=== PATIENT | female | born 1975 | race Caucasian/White ===

== ENCOUNTER 2023-01-08 09:55 | Inpatient (IN) | payer OTHER, SELFPAY ==
[2023-01-08] VITALS (51 sets, daily range): BP systolic 98–151; BP diastolic 58–90; PULSE 75–131; RESP 14–16; TEMP 36–37.2; O2SAT 96–99; BMI 30.9
[2023-01-08] MEDS: Lactated Ringers 1,000 ML 999 ML IV (09:30)
[2023-01-08] MEDS: Methylergonovine 0.2 MG/ML Ampul IM (09:35)
[2023-01-08] MEDS: Carboprost Tromethamine 250 MCG/ML Ampul IM (09:46)
[2023-01-08] MEDS: Oxytocin 15 Units/NS 250ml 15 UNITS/250 ML IV.SOLN 83 UNITS IV (09:52)
[2023-01-08 09:59] LABS: Absolute Lymphocyte Count 2.05 X10^3/uL (0.83-4.51); Absolute Neutrophil Count 12.9 X10^3/uL (2.0-7.7); Basophil# 0.03 X10^3/uL; Basophil% 0.2 % (0-1); Eosinophil# 0.01 X10^3/uL; Eosinophils% 0.1 % (0-5); Hematocrit 30.9 % (37-47); Hemoglobin 10.3 g/dL (12.0-15.0); Lymphocyte # 2.05 X10^3/ul (0.83-4.51); Lymphocyte % 12.7 % (19-41); Mean Corp Hgb Conc 33.3 g/dL (32-36); Mean Corpuscular Hgb 31.5 pg (27.0-32.0); Mean Corpuscular Volume 94.5 fL (81-99); Mean Platelet Vol. 10.6 fl (6.2-12.0); Monocyte% 6.2 % (0-10); NRBC Flagged by Analyzer 0 % (0-5); Neutrophil # 12.89 X10^3/uL (2.7-7.7); Neutrophil % 80.2 % (47-70); Platelet Count 202 K/mm3 (150-450); RBC Distribution Width CV 13.1 % (11.6-14.6); RBC Distribution Width SD 44.6 fl (35.1-43.9); Red Blood Count 3.27 M/mm3 (4.2-5.4); White Blood Count 16.1 K/mm3 (4.4-11.0)
--- NOTE | 2023-01-08 10:10 | PCM.HP.BLA ---
History and Physical Date of Admission: 01/08/23 HPI: 47-year-old day 0 status post spontaneous vaginal delivery at home admitted for hemorrhage. manager unit reports that patient delivered around 5 AM, labor had started around 2:30 AM. Bleeding initially was within normal limits, however then became heavier. She estimates blood loss at home to be approximately 1200 cc. Unable to control bleeding with fundal massage and bimanual massage. Therefore she brought the patient here to the hospital. Upon arrival patient was feeling tired, without dizziness or lightheadedness. Denied chest pain or shortness of breath, nausea or vomiting, diarrhea constipation, fevers or chills. Reports minimal cramping, declined pain management at this time. complicated by: Advanced maternal age, grand multiparity, precipitous delivery. No history of hemorrhage. 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 All vaginal deliveries. Her last delivery in 2021 was a breech home delivery. Otherwise no complications in her pregnancies or period. Medical history: Denies Surgical history: 1. Appendectomy Allergies: No known drug allergies Medications: Denies Social history: Denies tobacco, alcohol, drug use Family history: Noncontributory Review of system: Negative otherwise stated above Physical exam: Blood pressure 105/75, heart rate 104, pulse ox 98% on room air General: Upon admission patient was pale, in no acute distress. Cardiorespiratory: No increased effort Abdomen: Uterus deviated to the patient's left. Large amount of clot extruded from the uterus with fundal massage. Clot measuring 1150 g in hospital. : No perineal lacerations on exam. Cervix dilated about 6 cm, no clot noted in the lower uterine segment or vagina. Extremities: Minimal edema, spider veins on bilateral legs. Musculoskeletal: Moves all extremities equally Neurologic: Cranial nerves II through XII grossly intact, no focal deficits Assessment/plan: 47-year-old day 0 status post spontaneous vaginal delivery at home admitted for hemorrhage. complicated by: Advanced maternal age, grand multiparity, precipitous delivery. ?Upon arrival patient was feeling fatigued without any other symptoms. Per propeller layout worker she had about 1200 cc EBL at home. Patient had some blood on her pad. Uterus was noted to be deviated to her left, but firm. Large amount of clot was extruded with fundal massage, total measuring 1150 gm. ?Bedside ultrasound noted full bladder. Color Doppler flow did not show any flow to the endometrial cavity. Some clot noted in the endometrial cavity. ?De Jesus catheter was placed, draining 900 cc clear yellow urine, with more collecting in the bag after emptying. ?Patient received Methergine once, Hemabate once, 1 g of tranexamic acid. IV fluid bolus was started. 2 units of packed red blood cells were ordered, patient typed and crossed, with plans for transfusion. ?Perineum was examined, noting no vaginal lacerations. Bimanual massage done, no clot was noted in the lower uterine segment or vagina on exam. ?With drainage of bladder, the patient's uterus returned to midline and was noted to be 1 cm below umbilicus and firm. ?Repeat ultrasound was completed. Again no color Doppler flow was noted to endometrium. No evidence of retained products of conception/placenta on ultrasound. Minimal clot in the endometrial cavity noted. ?Placenta inspected as the senior safety support manager had brought it with her, placenta intact. ?Bleeding slowed to minimal. ?Pitocin started with routine orders, to be given over 3 hours. ?CBC with hemoglobin 10.3, however true hemoglobin level is likely lower than this. We will still plan to transfuse 2 units of packed red blood cells. We will repeat CBC 6 hours after blood is done transfusing. ?CMP, PT/PTT/fibrinogen pending. ?Bleeding is now minimal, patient is feeling improved. Vitals are stable. ?Discussed events and plan of care with the patient, her senior safety support manager, and . All questions answered. Reviewed plan of care with bedside RN as well.
[2023-01-08 10:18] LABS: International Normalized Ratio 1.2; Prothrombin Time (Protime)PT. 15.3 SECONDS (11.7-14.9)
[2023-01-08 10:28] LABS: Fibrinogen 114 mg/dl (203-444)
[2023-01-08 10:47] LABS: ALB/GLOB Ratio 0.6 RATIO (0.9-2.4); AST(SGOT) 21 U/L (15-37); Alanine Aminotransfer ALT/SGPT 15 U/L (13-56); Albumin, Serum 2.1 g/dL (3.2-5.0); Alkaline Phosphatase 81 U/L (45-117); Anion Gap 7 (5-15); BUN 9 mg/dL (7-18); BUN/Creat Ratio 16.2 RATIO (10-20); Calcium,Total 8.8 mg/dL (8.5-10.1); Chloride 104 mmol/L (98-107); Creatinine, Serum 0.55 mg/dL (0.55-1.02); EST Glomerular Filtration Rate 125 mL/min (>60); Est Glom Filt Rate - Afr Amer 152 mL/min (>60); Globulin 3.4 g/dL (2.2-4.2); Glucose 140 mg/dL (74-106); Potassium 3.8 mmol/L (3.5-5.1); Protein, Total 5.5 g/dL (6.4-8.2); Sodium Level 132 mmol/L (136-145)
[2023-01-08 10:54] LABS: Syphilis Antibodies Non-reactive
[2023-01-08] MEDS: Ibuprofen 600 MG Tablet PO (11:11)
[2023-01-08] MEDS: 0.9% Normal Saline 1,000 ML 15 ML IV (12:02)
[2023-01-08] MEDS: Acetaminophen 500 MG Tablet 1000 MG PO ×2 (12:53→22:07)
[2023-01-08] MEDS: 0.9% Saline Lock 10 ML Syringe IV ×2 (12:56→17:01)
--- NOTE | 2023-01-08 17:10 | PCM.PN.OB ---
Subjective Subjective Patient feeling improved from this morning. Would like to eat. Drinking well. Objective Data Objective Data Vital Signs: Vital Signs Temp Pulse Resp BP Pulse Ox O2 Del Method 98.5 F 84 16 105/58 L 99 Room Air 01/08/23 15:31 01/08/23 16:31 01/08/23 15:31 01/08/23 16:31 01/08/23 15:31 01/08/23 15:31 Oxygen Delivery Method Room Air Weight: 79.379 kg Body Mass Index (BMI) 30.9 Intake & Output: Intake and Output for Last 24 Hours 01/06/23 01/07/23 01/08/23 23:59 23:59 23:59 Intake Total 3717.66 / 3717.66 Output Total 2300 / 2300 Balance 1417.66 / 1417.66 Lab / Micro Data Attestation: I reviewed the patient's lab results. Result Diagrams: 01/08/23 09:30 01/08/23 09:30 Labs: Laboratory Results - last 24 hr 01/08/23 09:30: Blood Type AB POSITIVE, Antibody Screen NEGATIVE, Crossmatch See Detail 01/08/23 09:30: WBC 16.1 H, RBC 3.27 L, Hgb 10.3 L, Hct 30.9 L, MCV 94.5, MCH 31.5, MCHC 33.3, RDW Std Deviation 44.6 H, RDW Coeff of [place] 13.1, Plt Count 202, MPV 10.6, Immature Gran % (Auto) 0.600, Neut % (Auto) 80.2 H, Lymph % (Auto) 12.7 L, [place] % (Auto) 6.2, Eos % (Auto) 0.1, Baso % (Auto) 0.2, Absolute Neuts (auto) 12.9 H, Absolute Lymphs (auto) 2.05, Nucleated RBC % 0 01/08/23 09:30: PT 15.3 H, INR 1.2, Fibrinogen 114 L 01/08/23 09:30: Sodium 132 L, Potassium 3.8, Chloride 104, Carbon Dioxide 21.0, Anion Gap 7, BUN 9, Creatinine 0.55, Est GFR (MDRD) Af Amer 152, Est GFR (MDRD) Non-Af 125, BUN/Creatinine Ratio 16.2, Glucose 140 H, Calcium 8.8, Total Bilirubin 0.60, AST 21, ALT 15, Alkaline Phosphatase 81, Total Protein 5.5 L, Albumin 2.1 L, Globulin 3.4, Albumin/Globulin Ratio 0.6 L 01/08/23 09:30: Syphilis Total Ab Non-reactive Physical Exam Const alert, oriented x3 and no apparent distress Resp normal respiratory effort GI soft to palpation and non-tender GI Narrative: Uterus firm and fundus 1 to 2 cm below umbilicus. Neuro moves all extremities Psych mental status grossly normal and affect normal Assessment & Plan (1) hemorrhage: PLAN: day 0 status post spontaneous vaginal delivery and hemorrhage. ?Patient feeling improved. Bleeding stable. Patient just had 200 cc clot, however pad had not been changed since this morning. Fundus is firm. ?2 units of packed red blood cells have been transfused, repeat CBC at 2230. ?We will give regular diet. ? Keep De Jesus catheter overnight, plan to remove in the morning Plan of care reviewed with patient, , bedside nurse. All questions answered. (2) Advanced maternal age (AMA) in : (3) Grand multiparity:
--- NOTE | 2023-01-08 17:13 | NURSING ---
1712-ofelia pad changed weighed 201gms dr tierney aware
[2023-01-08 22:10] LABS: Hematocrit 28.2 % (37-47); Hemoglobin 9.5 g/dL (12.0-15.0); Mean Corp Hgb Conc 33.7 g/dL (32-36); Mean Corpuscular Hgb 31.5 pg (27.0-32.0); Mean Corpuscular Volume 93.4 fL (81-99); Mean Platelet Vol. 10.6 fl (6.2-12.0); Platelet Count 117 K/mm3 (150-450); RBC Distribution Width CV 13.4 % (11.6-14.6); RBC Distribution Width SD 45.4 fl (35.1-43.9); Red Blood Count 3.02 M/mm3 (4.2-5.4); White Blood Count 10.4 K/mm3 (4.4-11.0)
[2023-01-08 22:17] LABS: International Normalized Ratio 1.1; Partial Thromboplast Time 27.6 Seconds (24.1-36.2); Prothrombin Time (Protime)PT. 14.5 SECONDS (11.7-14.9)
[2023-01-08 22:28] LABS: Fibrinogen 150 mg/dl (203-444)
[2023-01-09] VITALS (9 sets, daily range): BP systolic 93–113; BP diastolic 55–75; PULSE 81–99; RESP 14–16; TEMP 36.7–37.2; O2SAT 97–98
[2023-01-09] MEDS: Ibuprofen 600 MG Tablet PO ×2 (02:31→10:47)
[2023-01-09 05:16] LABS: Absolute Lymphocyte Count 1.62 X10^3/uL (0.83-4.51); Absolute Neutrophil Count 8.5 X10^3/uL (2.0-7.7); Basophil# 0.02 X10^3/uL; Basophil% 0.2 % (0-1); Eosinophil# 0.01 X10^3/uL; Eosinophils% 0.1 % (0-5); Hematocrit 25.1 % (37-47); Hemoglobin 8.3 g/dL (12.0-15.0); Lymphocyte # 1.62 X10^3/ul (0.83-4.51); Lymphocyte % 14.8 % (19-41); Mean Corp Hgb Conc 33.1 g/dL (32-36); Mean Corpuscular Hgb 31.1 pg (27.0-32.0); Monocyte# 0.77 X10^3/uL; NRBC Flagged by Analyzer 0 % (0-5); Neutrophil # 8.46 X10^3/uL (2.7-7.7); Neutrophil % 77.3 % (47-70); Platelet Count 110 K/mm3 (150-450); RBC Distribution Width CV 13.9 % (11.6-14.6); RBC Distribution Width SD 46.5 fl (35.1-43.9); Red Blood Count 2.67 M/mm3 (4.2-5.4)
[2023-01-09 05:36] LABS: ALB/GLOB Ratio 0.7 RATIO (0.9-2.4); AST(SGOT) 26 U/L (15-37); Alanine Aminotransfer ALT/SGPT 13 U/L (13-56); Albumin, Serum 1.9 g/dL (3.2-5.0); Alkaline Phosphatase 64 U/L (45-117); Anion Gap 6 (5-15); BUN 10 mg/dL (7-18); BUN/Creat Ratio 19.7 RATIO (10-20); Calcium,Total 7.7 mg/dL (8.5-10.1); Chloride 110 mmol/L (98-107); Creatinine, Serum 0.51 mg/dL (0.55-1.02); EST Glomerular Filtration Rate 139 mL/min (>60); Est Glom Filt Rate - Afr Amer 168 mL/min (>60); Estimated Creatinine Clearance 114.02 ml/min; Globulin 2.8 g/dL (2.2-4.2); Glucose 84 mg/dL (74-106); Potassium 4.1 mmol/L (3.5-5.1); Protein, Total 4.7 g/dL (6.4-8.2); Sodium Level 138 mmol/L (136-145)
--- NOTE | 2023-01-09 07:28 | PCM.PN.OB ---
Subjective Subjective No overnight complaints. Ambulating. Tolerating regular diet. Denies weakness, dizziness, chest pain, shortness of breath Objective Data Objective Data Vital Signs: Vital Signs Temp Pulse Resp BP Pulse Ox O2 Del Method 99 F 88 16 93/55 L 97 Room Air 01/09/23 04:55 01/09/23 04:59 01/09/23 04:55 01/09/23 04:59 01/09/23 04:55 01/09/23 04:55 Oxygen Delivery Method Room Air Weight: 175 lb Body Mass Index (BMI) 30.9 Intake & Output: Intake and Output for Last 24 Hours 01/07/23 01/08/23 01/09/23 23:59 23:59 23:59 Intake Total 3717.66 / 3717.66 Output Total 5601 / 5601 800 / 800 Balance -1883.34 / -1883.34 -800 / -800 Lab / Micro Data Result Diagrams: 01/09/23 05:10 01/09/23 05:10 Labs: Laboratory Results - last 24 hr 01/08/23 09:30: Blood Type AB POSITIVE, Antibody Screen NEGATIVE, Crossmatch See Detail 01/08/23 09:30: WBC 16.1 H, RBC 3.27 L, Hgb 10.3 L, Hct 30.9 L, MCV 94.5, MCH 31.5, MCHC 33.3, RDW Std Deviation 44.6 H, RDW Coeff of [place] 13.1, Plt Count 202, MPV 10.6, Immature Gran % (Auto) 0.600, Neut % (Auto) 80.2 H, Lymph % (Auto) 12.7 L, [place] % (Auto) 6.2, Eos % (Auto) 0.1, Baso % (Auto) 0.2, Absolute Neuts (auto) 12.9 H, Absolute Lymphs (auto) 2.05, Nucleated RBC % 0 01/08/23 09:30: PT 15.3 H, INR 1.2, Fibrinogen 114 L 01/08/23 09:30: Sodium 132 L, Potassium 3.8, Chloride 104, Carbon Dioxide 21.0, Anion Gap 7, BUN 9, Creatinine 0.55, Est GFR (MDRD) Af Amer 152, Est GFR (MDRD) Non-Af 125, BUN/Creatinine Ratio 16.2, Glucose 140 H, Calcium 8.8, Total Bilirubin 0.60, AST 21, ALT 15, Alkaline Phosphatase 81, Total Protein 5.5 L, Albumin 2.1 L, Globulin 3.4, Albumin/Globulin Ratio 0.6 L 01/08/23 09:30: Syphilis Total Ab Non-reactive 01/08/23 22:00: WBC 10.4, RBC 3.02 L, Hgb 9.5 L, Hct 28.2 L, MCV 93.4, MCH 31.5, MCHC 33.7, RDW Std Deviation 45.4 H, RDW Coeff of [place] 13.4, Plt Count 117 L, MPV 10.6 01/08/23 22:00: PT 14.5, INR 1.1, APTT 27.6, Fibrinogen 150 L 01/09/23 05:10: WBC 11.0, RBC 2.67 L, Hgb 8.3 L, Hct 25.1 L, MCV 94.0, MCH 31.1, MCHC 33.1, RDW Std Deviation 46.5 H, RDW Coeff of [place] 13.9, Plt Count 110 L, MPV 10.0, Immature Gran % (Auto) 0.600, Neut % (Auto) 77.3 H, Lymph % (Auto) 14.8 L, [place] % (Auto) 7.0, Eos % (Auto) 0.1, Baso % (Auto) 0.2, Absolute Neuts (auto) 8.5 H, Absolute Lymphs (auto) 1.62, Nucleated RBC % 0 01/09/23 05:10: Sodium 138, Potassium 4.1, Chloride 110 H, Carbon Dioxide 22.0, Anion Gap 6, BUN 10, Creatinine 0.51 L, Estim Creat Clear Calc 114.02, Est GFR (MDRD) Af Amer 168, Est GFR (MDRD) Non-Af 139, BUN/Creatinine Ratio 19.7, Glucose 84, Calcium 7.7 L, Total Bilirubin 0.30, AST 26, ALT 13, Alkaline Phosphatase 64, Total Protein 4.7 L, Albumin 1.9 L, Globulin 2.8, Albumin/Globulin Ratio 0.7 L Physical Exam Const alert, oriented x3, no apparent distress, average body habitus, healthy appearing and well nourished HEENT normocephalic and moist oral mucous membranes Eyes PERRL Neck full ROM Resp normal respiratory effort, no retractions, no use of accessory muscles and clear to auscultation bilaterally GI GI Narrative: Soft, nontender, uterus firm Extremity normal to inspection and full ROM Neuro moves all extremities and no focal motor deficits Psych mental status grossly normal, affect normal, speech normal and activity/motor behavior normal Assessment & Plan (1) hemorrhage: PLAN: day 1, arrived to hospital with home delivery and hemorrhage. Status post 2 units packed red blood cells. Overall patient feels much improved no bleeding overnight. Hemoglobin continues to stabilize. We will repeat CBC at noon. To remove De Jesus catheter now and ambulate. Pending patient's symptoms and lab results will consider discharge home today
[2023-01-09 12:45] LABS: Absolute Neutrophil Count 8.2 X10^3/uL (2.0-7.7); Basophil# 0.02 X10^3/uL; Basophil% 0.2 % (0-1); Eosinophil# 0.01 X10^3/uL; Eosinophils% 0.1 % (0-5); Hematocrit 27.1 % (37-47); Lymphocyte % 12.8 % (19-41); Mean Corp Hgb Conc 33.2 g/dL (32-36); Mean Corpuscular Hgb 31.7 pg (27.0-32.0); Mean Corpuscular Volume 95.4 fL (81-99); Mean Platelet Vol. 10.6 fl (6.2-12.0); Monocyte% 5.9 % (0-10); NRBC Flagged by Analyzer 0 % (0-5); Neutrophil # 8.19 X10^3/uL (2.7-7.7); Neutrophil % 80.3 % (47-70); Platelet Count 127 K/mm3 (150-450); RBC Distribution Width SD 47.8 fl (35.1-43.9); Red Blood Count 2.84 M/mm3 (4.2-5.4); White Blood Count 10.2 K/mm3 (4.4-11.0)
--- NOTE | 2023-01-09 14:19 | DCINST_ITS ---
Discharge Instructions Diet Discharge Diet: No restrictions Activity Discharge Activity: Return to Normal Activity, May Drive and May Shower May resume sexual activity in: 6-8 weeks Weight Bearing Status: Weight bearing as tolerated Dressing / Incision Call your doctor if your incision/area has: Continuous Slow Oozing and Foul Smelling Discharge Call your doctor if you observe: Fever of 101 or Higher, Shortness of breath and Chest pain Follow Up Care Please Follow Up With: José Antonio Streeter MD When: 1 to 2 weeks Test Results: Test results from this visit will be discussed in further detail at your follow- up appointment, if applicable. Discharge Plan Admission Admit Date/Time: 01/08/23 09:55 Attending Provider: Nano Streeter Disposition Discharge Orders: Discharge Patient (Routine); Ordered 01/09/23 Ordered By: Dr. José Antonio Streeter
[2023-01-09] MEDS: Acetaminophen 500 MG Tablet 1000 MG PO (14:22)
== END 2023-01-09 15:45 | disposition home or self-care (01) | DRG 776 ==
LOC: WPOUT 09:58 → WP 01-09 08:19
PROVIDERS: Obstetrics & Gynecology; Admitting Provider Student in an Organized Health Care Education/Training Program; Referring Provider Student in an Organized Health Care Education/Training Program; Visit Provider Student in an Organized Health Care Education/Training Program
DX: O72.1 Other immediate postpartum hemorrhage (principal); Z64.1 Problems related to multiparity
CPT/HCPCS: 80053; 85025; 85027; 85384; 85610; 85730; 86780; 86850; 86900; 86901; 86920; 86922; J7030; J7120; P9016; A4216